=== PATIENT | female | born 1945 | race Hispanic/Latino ===

== ENCOUNTER → 2017-09-11 | Outpatient (CLI) | payer MEDICARE ==
[~2017-09-11] MED LIST: ALLO100T PO; AMLO2.5T PO; ASPI-555 PO; CHOL100040 PO; CITA10TA7 PO; FERS325 PO; FOLI1TAB85 PO; HYDR12.530 PO; INSLAN SQ; ISOS30TA11 PO; LOSA100T29 PO; METO-409 PO; PRAV40TA3 PO; TRAM-355 PO
== END | disposition home or self-care (01) ==
LOC: SHCH 14:36
PROVIDERS: ATTEND Internal Medicine Cardiovascular Disease
DX: I87.2 Venous insufficiency (chronic) (peripheral) (principal); Z86.718 Personal history of other venous thrombosis and embolism
CPT/HCPCS: 93970

== ENCOUNTER → 2019-05-20 | Outpatient (CLI) | payer MEDICARE ==
[~2019-05-20] MED LIST changes: -AMLO2.5T PO; +AMLO2.5T4 PO; -LOSA100T29 PO; +LOSA100T58 PO
== END | disposition home or self-care (01) ==
LOC: RAH 12:23
PROVIDERS: ATTEND Family Medicine
DX: M23.321 Other meniscus derangements, posterior horn of medial meniscus, right knee (principal)
CPT/HCPCS: 73718; 73721

== ENCOUNTER → 2022-09-16 | Outpatient (CLI) | payer OTHER, MEDICARE ==
[~2022-09-16] MED LIST changes: -ASPI-555 PO; +ASPI-556 PO; -CITA10TA7 PO; +CITA10TA89 PO
[2022-09-16 13:06] LABS: CHOLESTEROL 154 mg/dL (<200); HDL CHOLESTEROL 51 mg/dL (35-85); LDL DIRECT 84 mg/dL (0-99); TRIGLYCERIDES 134 mg/dL (30-200)
== END | disposition home or self-care (01) ==
LOC: LAB 10:11
PROVIDERS: ATTEND Internal Medicine Cardiovascular Disease
DX: E78.5 Hyperlipidemia, unspecified (principal)
CPT/HCPCS: 36415; 80061

== ENCOUNTER → 2023-05-06 | Outpatient (CLI) | payer OTHER, MEDICARE ==
[~2023-05-06] MED LIST changes: -LOSA100T58 PO; +LOSA100T59 PO
[2023-05-06 16:20] LABS: BASOPHILS # (AUTO) 0.07 K/uL (0.00-0.20); BASOPHILS % (AUTO) 0.6 % (0.0-5.0); EOSINOPHILS # (AUTO) 0.24 K/uL (0.00-0.70); EOSINOPHILS % (AUTO) 2.1 % (0.0-8.0); HEMATOCRIT 37.7 % (36-48); IMMATURE GRANULOCYTE ABSOLUTE 0.05 K/uL (0-1); LYMPHOCYTES # (AUTO) 3.7 K/uL (1.0-4.8); LYMPHOCYTES % (AUTO) 32.2 % (21.0-51.0); MEAN CORPUSCULAR HEMOGLOBIN 32.3 pg (27.0-33.0); MEAN CORPUSCULAR HGB CONC 31.8 g/dL (32.0-36.0); MEAN CORPUSCULAR VOLUME 101.6 fL (79-99); MONOCYTES # (AUTO) 0.9 K/uL (0.1-1.0); MONOCYTES % (AUTO) 7.5 % (3.0-13.0); NEUTROPHILS # (AUTO) 6.6 K/uL (1.8-7.7); NEUTROPHILS % (AUTO) 57.2 % (40.0-77.0); PLATELET COUNT (AUTO) 261 K/uL (130-400); RED BLOOD CELL COUNT(AUTO) 3.71 MIL/uL (4.00-5.50); RED CELL DISTRIBUTION WIDTH 14.7 % (11.0-15.5); WHITE BLOOD COUNT (AUTO) 11.6 K/uL (4.8-10.8)
[2023-05-06 16:38] LABS: POTASSIUM 3.9 mmol/L (3.5-5.1)
== END | disposition home or self-care (01) ==
LOC: LAB 11:41
PROVIDERS: ATTEND Internal Medicine Cardiovascular Disease
DX: E11.22 Type 2 diabetes mellitus with diabetic chronic kidney disease (principal); N18.9 Chronic kidney disease, unspecified
CPT/HCPCS: 36415; 80048; 85025

== ENCOUNTER 2024-05-02 06:00 | Day surgery (SDC) | payer OTHER, MEDICARE ==
[2024-05-02] VITALS (9 sets, daily range): BP systolic 140–169; BP diastolic 51–99; PULSE 68–75; RESP 12–18; TEMP 97.3–98
[~2024-05-02] VITALS: Ht 152.4 cm; Wt 65.3 kg
[~2024-05-02 06:00] MED LIST changes: -TRAM-355 PO; +TRAM-543 PO
[2024-05-02] MEDS ORDERED: LISPRO INSULIN SQ ×2 (06:56→06:59)
[2024-05-02] MEDS ORDERED: INSU100V12 SQ (06:56)
[2024-05-02] MEDS: 0.9%NACL 1000ML 1,000 ML IV ONE (07:03)
[2024-05-02] MEDS ORDERED: proPOFol 10 MG/ML 20ML VIAL IV ONE (07:41)
[2024-05-02] MEDS ORDERED: CIPR500S4 PO (09:05)
[2024-05-02] MEDS ORDERED: METR-361 PO (09:06)
[2024-05-02] MEDS ORDERED: METR375C2 PO (09:06)
== END 2024-05-02 09:15 | disposition home or self-care (01) ==
LOC: ENDO 06:00 → DAH 06:00 → ENDO 09:15
PROVIDERS: ATTEND Internal Medicine Gastroenterology
DX: R19.7 Diarrhea, unspecified (principal); K57.30 Diverticulosis of large intestine without perforation or abscess without bleeding; I11.0 Hypertensive heart disease with heart failure; I50.9 Heart failure, unspecified; E11.9 Type 2 diabetes mellitus without complications; F41.9 Anxiety disorder, unspecified; E78.2 Mixed hyperlipidemia; Z90.710 Acquired absence of both cervix and uterus; Z79.899 Other long term (current) drug therapy
CPT/HCPCS: 45380; 82948 ×2; J7030; J2704; A4620; A4215 ×2; A4223; A4222; A4221; A4663; A4606; J3490